=== PATIENT | female | born 1975 | race Caucasian/White ===

== ENCOUNTER 2016-12-08 13:07 | Emergency (ER) | payer MEDICAID | END 2016-12-08 13:53 | disposition home or self-care (01) | DX: K04.7 Periapical abscess without sinus (principal); K02.9 Dental caries, unspecified; S02.5XXA Fracture of tooth (traumatic), initial encounter for closed fracture; X58.XXXA Exposure to other specified factors, initial encounter; J01.90 Acute sinusitis, unspecified; R03.0 Elevated blood-pressure reading, without diagnosis of hypertension ==